=== PATIENT | male | born 1965 | race Two or more races ===

== ENCOUNTER 2022-09-06 16:40 | Inpatient (IN) | payer OTHER ==
[~2022-09-06] VITALS: Ht 167.6 cm; Wt 83.0 kg
--- NOTE | 2022-09-06 18:19 | NUR ---
PTE SE OBSERVA A/O X4. PTE VERBALIZA QUE LE DUELE EL PIES. PTE SE OBSERVA CON ULCERA CON SECRECIONES EN DEDO 5 AMPUTADO. PTE VERBALIZA QUE LE AMPUTARON DEDO EN OCTRE. ADEMAS SE OBSERVA DEDOS DEL PIES CON ERRYTHEMA POSIBLE CELULITIS.
--- NOTE | 2022-09-06 19:05 | NUR ---
PTE MASCULINO ALERTA Y ORIENTADO X3 ES EVALUADO POR . SE ORIENTA SOBRE ORDENES DE TX REFIERE COMPRENDER. SE COLECTAN MUESTRAS DE LABORATORIOS Y SE CANALIZA VENA BAJO MEDIDAS ASEPTICAS. SE ADMINISTRAN MEDICAMENTOS, BAJO MEDIDAS ASEPTICAS.SE NOTIFICA A RADIOLOGIA PARA XRAY.
== END 2022-09-13 20:38 | disposition home or self-care (01) | DRG 982 ==
LOC: ER 16:40 → MEDJ 19:05
PROVIDERS: ADMIT Internal Medicine; ATTEND Internal Medicine
PROC: 0JDR0ZZ Extraction of Left Foot Subcutaneous Tissue and Fascia, Open Approach (ICD-10-PCS; principal; 2022-09-07)
PROC: B44HZZZ Ultrasonography of Bilateral Lower Extremity Arteries (ICD-10-PCS; 2022-09-08)
PROC: BQ3FYZZ Magnetic Resonance Imaging (MRI) of Left Lower Leg using Other Contrast (ICD-10-PCS; 2022-09-12)
DX: E11.621 Type 2 diabetes mellitus with foot ulcer (principal); L02.612 Cutaneous abscess of left foot; L03.116 Cellulitis of left lower limb; T81.49XA Infection following a procedure, other surgical site, initial encounter; L97.529 Non-pressure chronic ulcer of other part of left foot with unspecified severity; E11.628 Type 2 diabetes mellitus with other skin complications; I10 Essential (primary) hypertension; B95.61 Methicillin susceptible Staphylococcus aureus infection as the cause of diseases classified elsewhere; B96.89 Other specified bacterial agents as the cause of diseases classified elsewhere; I73.89 Other specified peripheral vascular diseases; Z79.4 Long term (current) use of insulin; Z89.422 Acquired absence of other left toe(s); Z20.822 Contact with and (suspected) exposure to COVID-19; Z87.891 Personal history of nicotine dependence
CPT/HCPCS: 73725

== ENCOUNTER 2022-10-26 16:16 | Inpatient (IN) | payer OTHER ==
[~2022-10-26] VITALS: Ht 167.6 cm; Wt 83.0 kg
[2022-10-26] MEDS ORDERED: CLOPIDOGREL BIS75 MG PO (16:40)
[2022-10-26] MEDS ORDERED: CHILDREN'S ASPI81 MG PO (16:41)
[2022-10-26] MEDS ORDERED: HORIZANT300 MG PO (16:41)
[2022-10-26] MEDS ORDERED: NEURONTIN600 M1 (16:41)
[2022-10-26] MEDS ORDERED: COZAAR25 MG PO (16:41)
[2022-10-26] MEDS ORDERED: METFORMIN HCL500 MG (16:41)
[2022-10-26] MEDS ORDERED: ATORVASTATIN CA10 MG PO (16:42)
== END 2022-11-12 15:47 | disposition home or self-care (01) | DRG 257 ==
LOC: ER 16:16 → MEDI 17:37
PROVIDERS: ADMIT Internal Medicine; ATTEND Internal Medicine
PROC: BQ3FZZZ Magnetic Resonance Imaging (MRI) of Left Lower Leg (ICD-10-PCS; 2022-10-27)
PROC: 0HDNXZZ Extraction of Left Foot Skin, External Approach (ICD-10-PCS; 2022-10-31)
PROC: 0Y6Q0Z0 Detachment at Left 1st Toe, Complete, Open Approach (ICD-10-PCS; principal; 2022-11-07)
DX: I96 Gangrene, not elsewhere classified (principal); E11.52 Type 2 diabetes mellitus with diabetic peripheral angiopathy with gangrene; L97.524 Non-pressure chronic ulcer of other part of left foot with necrosis of bone; L08.9 Local infection of the skin and subcutaneous tissue, unspecified; L03.032 Cellulitis of left toe; I77.1 Stricture of artery; B35.1 Tinea unguium; B95.61 Methicillin susceptible Staphylococcus aureus infection as the cause of diseases classified elsewhere; B96.89 Other specified bacterial agents as the cause of diseases classified elsewhere; E78.5 Hyperlipidemia, unspecified; Z79.4 Long term (current) use of insulin; I10 Essential (primary) hypertension; Z20.822 Contact with and (suspected) exposure to COVID-19; G62.9 Polyneuropathy, unspecified
CPT/HCPCS: 73725

== ENCOUNTER 2023-02-18 10:04 | Emergency (ER) | payer OTHER ==
[~2023-02-18] VITALS: Ht 167.6 cm; Wt 83.9 kg
[~2023-02-18 10:04] MED LIST: ATORVASTATIN CA10 MG PO; CHILDREN'S ASPI81 MG PO; CLOPIDOGREL BIS75 MG PO; COZAAR25 MG PO; HORIZANT300 MG PO; METFORMIN HCL500 MG; NEURONTIN600 M1
== END 2023-02-18 15:52 | disposition home or self-care (01) ==
LOC: ER 10:04
DX: I10 Essential (primary) hypertension (principal); E11.9 Type 2 diabetes mellitus without complications; L97.529 Non-pressure chronic ulcer of other part of left foot with unspecified severity

== ENCOUNTER 2025-02-27 21:08 | Inpatient (IN) | payer OTHER ==
[~2025-02-27] VITALS: Ht 152.4 cm; Wt 81.6 kg
--- NOTE | 2025-02-27 21:57 | NUR ---
SE RECIBE MASCULINO ALERTA Y ORIENTADO X3 CUAL REFIERE PRESENTA DEBILIDAD EN AMBAS PIERNAS DESDE WEI. SE OBSERVA EDEMA EN AMBAS PIERNAS. ABD DISTENDIDO SIN DOLOR AL TACTO. MASCULINO VERBALIZA QUE TIENE HARDIK "ULCERA QUE SALIO WEI". SE OBSERVA AREA DE PRESION CON EDEMA, ERITEMA Y LESIONES DESDE EL AREA DEL SACRO HASTA EL PERINEO. ADEMAS PRESENTA EDEMA Y ERITEMA EN ESCROTO Y TESTICULOS. SE MIGUEL S/V, SE RELAIZA EKG Y SE PRESENTA A QUIEN ORDENA UBICAR EN OBS.
[2025-02-27] MEDS ORDERED: 0.9 % SODIUM CHLORIDE 1,000 ML IV SCH (22:00)
--- NOTE | 2025-02-27 22:25 | NUR ---
SE ORIENTA PTE SOBRE TX MEDICO ORDENADO POR . SE REALIZA SAHIL DE MUESTRAS DE LAB FELIX ORDEN MEDICA Y BAJO MEDIDAS ASEPTICAS. VENOPUNCION PATENTE RENEE DE EDEMA Y ERITEMA EN H/L. SE NOTIFICAN ESTUDIO ORDENADOS. SE ENTREGA ENVASE PARA MUESTRA DE U/A.
[2025-02-27 22:30] LABS: BASO % 0.3 % (0.1-1.2); EOS # 0.06 (0.04-0.54); EOS % 0.2 % (0.7-7.0); LYMPH # 1.01 (1.18-3.74); LYMPH % 3.6 % (19.3-53.1); MEAN PLATELET VOLUME 10.50 fl (9.4-12.4); MONO # 1.84 (0.24-0.82); MONO % 6.6 % (4.7-12.5); NEUT # 24.85 (1.56-6.13); NEUT % 88.7 % (34.0-71.1); RED CELL DISTRIBUTION WIDTH 13.7 % (11.6-14.4)
[2025-02-27 22:55] LABS: ALT/SGPT 31.0 U/L (12-78); AST/SGOT 18.0 U/L (15-37); BILIRUBIN TOTAL 0.45 mg/dL (0.3-1.2); BUN CREA RATIO 20.0 (7.0-25.0); CREATININE SERUM 1.19 mg/dL (0.70-1.30); GFR 62.15; GLOBULINA 4.2 G/DL (2.4-3.5); OSMOLALITY SERUM 272.0 MOSM/KG (275-295)
[2025-02-27 23:01] LABS: GLUCOSE FASTING 261.0 mg/dL (65-100)
[2025-02-27] MEDS ORDERED: INSULIN REGULAR, HUMAN 1,000 UNIT/10 ML UNITS IV ONE (23:45)
[2025-02-27] MEDS ORDERED: CEFTRIAXONE SODIUM 1,000 MG VIAL IV ONE (23:45)
--- NOTE | 2025-02-28 05:19 | NUR ---
SE INSERTA MESA CATETER #[id number] BAJO MEDIDAS ASEPTICAS, DRENANDO SIN PROBLEMA Y SE OBSERVA ORINA VERITO. CLIENTE ES ORIENTADO SOBRE PROCEDIMIENTO REALIZADO Y CUIDADOS A SEGUIR EN AREA TRABAJADA. CLIENTE VERBALIZA ENTENDER ORIENTACION Y SE MANTIENE EN OBSERVACION POR CAMBIOS EN CONDICION.
[2025-02-28 06:25] LABS: URINE APPEARANCE Clear; URINE BILIRRUBIN Negative (NEGATIVE); URINE BLOOD Negative; URINE COLOR Yellow; URINE GLUCOSE Negative (NEGATIVE); URINE KETONE Negative (NEGATIVE); URINE LEUKOCYTE Negative; URINE NITRATE Negative; URINE PROTEIN Negative (NEGATIVE); URINE UROBILINOGEN 0.2 E.U./dl
[2025-02-28 06:28] LABS: URINE BACTERIA 62.3 uL (0.0-1933); URINE EPITHELIAL CELLS 2.6 uL (0.0-38.8); URINE WBC 9.2 uL (0.0-23.2)
[2025-02-28 06:29] LABS: URINE CAST 0.14 uL (0.0-1.40); URINE RBC 1.3 uL (0.0-20.8)
--- NOTE | 2025-02-28 07:00 | NUR ---
SE RECIBE PTE DURMIENDO AL MOMENTO EN CAMA CON BARNADAS ELEVADAS POR DANIELSON SEGURIDAD Y GENTILE ID. SE OBERVA MESA PATENTE, EN POSICION BAJANDO A GRAVEDAD. VENOPUNCION PATENTE RENEE DE EDEMA Y ERITEMA BAJANDO IV FLUIDS POR REGULADOR. PTE PENDIENTE A HERMINIO DE CONSULTA. SE MIDE S/V Y SE UBICA.
[2025-02-28] MEDS ORDERED: MORPHINE SULFATE 4 MG/ML VIAL IV PRN (12:30)
[2025-02-28] MEDS ORDERED: ONDANSETRON HCL 2 MG/ML VIAL IV PRN (12:30)
[2025-02-28] MEDS ORDERED: INSULIN LISPRO 1,000 UNIT/10 ML UNITS SUBCUTANEO SCH (13:00)
[2025-02-28 15:38] VITALS: BP 134/77; O2SAT 98
[2025-02-28] MEDS ORDERED: INSULIN GLARGINE,HUM.REC.ANLOG 1,000 UNITS/10 ML UNITS SUBCUTANEO SCH (17:00)
[2025-02-28] MEDS ORDERED: PIPERACILLIN/TAZOBACTAM SODIUM 3.375 GM VIAL IV SCH (18:00)
[2025-02-28 23:00] VITALS: BP 158/88; O2SAT 99
[2025-03-01] MEDS ORDERED: DEXTROSE 50 % IN WATER 0.5 G/ML VIAL IV PRN (07:45)
[2025-03-01] MEDS ORDERED: INSULIN LISPRO 1,000 UNIT/10 ML UNITS SUBCUTANEO PRN (07:45)
[2025-03-01 08:14] LABS: BASO % 0.2 % (0.1-1.2); EOS # 0.21 (0.04-0.54); EOS % 1.2 % (0.7-7.0); LYMPH # 1.47 (1.18-3.74); LYMPH % 8.3 % (19.3-53.1); MEAN PLATELET VOLUME 11.40 fl (9.4-12.4); MONO # 1.49 (0.24-0.82); MONO % 8.4 % (4.7-12.5); NEUT # 14.36 (1.56-6.13); NEUT % 81.4 % (34.0-71.1); RED CELL DISTRIBUTION WIDTH 13.8 % (11.6-14.4)
[2025-03-01 08:48] VITALS: BP 135/62; O2SAT 98
[2025-03-01 08:54] LABS: ALT/SGPT 31.0 U/L (12-78); AST/SGOT 18.0 U/L (15-37); BILIRUBIN TOTAL 0.33 mg/dL (0.3-1.2); BUN CREA RATIO 14.0 (7.0-25.0); CREATININE SERUM 0.87 mg/dL (0.70-1.30); GFR 89.21; GLOBULINA 3.5 G/DL (2.4-3.5); GLUCOSE FASTING 127.0 mg/dL (65-100); OSMOLALITY SERUM 279.0 MOSM/KG (275-295)
[2025-03-01 17:21] VITALS: BP 145/73
[2025-03-02 02:18] VITALS: BP 143/82; O2SAT 97
[2025-03-02 06:21] LABS: BASO % 0.4 % (0.1-1.2); EOS # 0.28 (0.04-0.54); EOS % 1.7 % (0.7-7.0); LYMPH # 1.79 (1.18-3.74); LYMPH % 11.2 % (19.3-53.1); MEAN PLATELET VOLUME 11.20 fl (9.4-12.4); MONO # 1.60 (0.24-0.82); MONO % 10.0 % (4.7-12.5); NEUT # 12.23 (1.56-6.13); NEUT % 76.2 % (34.0-71.1); RED CELL DISTRIBUTION WIDTH 13.7 % (11.6-14.4)
[2025-03-02 08:58] VITALS: BP 133/76; O2SAT 97
[2025-03-02 16:26] VITALS: BP 162/87; O2SAT 97
[2025-03-02] MEDS ORDERED: AMINO ACIDS/PROTEIN HYDROLYS 30 ML BLIST.PACK PO SCH (17:00)
[2025-03-03] VITALS: BP 153/74; O2SAT 98
[2025-03-03 09:13] VITALS: BP 165/76
[2025-03-03 16:30] VITALS: BP 148/83; O2SAT 99
[2025-03-03] MEDS ORDERED: LOSARTAN POTASSIUM 25 MG TABLET PO SCH (17:00)
[2025-03-04 02:21] VITALS: BP 147/78; O2SAT 100
[2025-03-04 06:13] LABS: BASO % 0.5 % (0.1-1.2); EOS # 0.36 (0.04-0.54); EOS % 2.7 % (0.7-7.0); LYMPH # 1.73 (1.18-3.74); LYMPH % 13.0 % (19.3-53.1); MEAN PLATELET VOLUME 10.70 fl (9.4-12.4); MONO # 1.26 (0.24-0.82); MONO % 9.5 % (4.7-12.5); NEUT # 9.82 (1.56-6.13); NEUT % 73.8 % (34.0-71.1); RED CELL DISTRIBUTION WIDTH 13.5 % (11.6-14.4)
[2025-03-04 06:43] LABS: BUN CREA RATIO 19.0 (7.0-25.0); CREATININE SERUM 0.77 mg/dL (0.70-1.30); GFR 102.71; GLUCOSE FASTING 142.0 mg/dL (65-100); OSMOLALITY SERUM 279.0 MOSM/KG (275-295)
[2025-03-04 08:27] VITALS: BP 144/81
[2025-03-04] MEDS ORDERED: METOPROLOL SUCCINATE 25 MG TAB.SR.24H PO NR (11:00)
[2025-03-04 18:06] VITALS: BP 149/81
[2025-03-04 18:08] VITALS: BP 149/81
[2025-03-05 00:55] VITALS: BP 140/77; O2SAT 99
[2025-03-05 08:54] VITALS: BP 114/75
[2025-03-05] MEDS ORDERED: METOPROLOL SUCCINATE 25 MG TAB.SR.24H PO SCH (09:00)
[2025-03-05 18:02] VITALS: BP 134/80
[2025-03-06 02:37] VITALS: BP 150/80; O2SAT 97
[2025-03-06 08:44] VITALS: BP 154/76
[2025-03-06] MEDS ORDERED: METOPROLOL SUCCINATE 25 MG TAB.SR.24H PO SCH (17:00)
[2025-03-06] MEDS ORDERED: LOSARTAN POTASSIUM 25 MG TABLET PO SCH (17:00)
[2025-03-06 21:01] VITALS: BP 138/80
[2025-03-07 02:57] VITALS: BP 136/69; O2SAT 97
[2025-03-07 07:42] LABS: BASO % 0.4 % (0.1-1.2); EOS # 0.44 (0.04-0.54); EOS % 3.2 % (0.7-7.0); LYMPH # 1.84 (1.18-3.74); LYMPH % 13.5 % (19.3-53.1); MEAN PLATELET VOLUME 11.10 fl (9.4-12.4); MONO # 1.11 (0.24-0.82); MONO % 8.1 % (4.7-12.5); NEUT # 10.09 (1.56-6.13); NEUT % 74.1 % (34.0-71.1); RED CELL DISTRIBUTION WIDTH 13.7 % (11.6-14.4)
[2025-03-07 07:45] LABS: ERYTHROCYTE SEDIMENTATION RATE 102 mm/hr (0-20)
[2025-03-07 07:49] LABS: BUN CREA RATIO 25.0 (7.0-25.0); CREATININE SERUM 0.84 mg/dL (0.70-1.30); GFR 92.89; GLUCOSE FASTING 154.0 mg/dL (65-100); OSMOLALITY SERUM 282.0 MOSM/KG (275-295)
[2025-03-07 08:52] VITALS: BP 130/75; O2SAT 98
[2025-03-07] MEDS ORDERED: LACTOBACILLUS ACIDOPHILUS 1 CAP CAP PO SCH (13:00)
[2025-03-07 15:30] VITALS: BP 128/80; O2SAT 98
[2025-03-07] MEDS ORDERED: GABAPENTIN 300 MG CAPSULE PO SCH (21:00)
[2025-03-08 01:09] VITALS: BP 119/77; O2SAT 98
[2025-03-08 09:30] VITALS: BP 137/78; O2SAT 98
[2025-03-08 16:47] VITALS: BP 137/77; O2SAT 100
[2025-03-09 01:53] VITALS: BP 152/85; O2SAT 100
[2025-03-09 06:18] LABS: BASO % 0.5 % (0.1-1.2); EOS # 0.43 (0.04-0.54); EOS % 3.3 % (0.7-7.0); LYMPH # 1.88 (1.18-3.74); LYMPH % 14.3 % (19.3-53.1); MEAN PLATELET VOLUME 10.90 fl (9.4-12.4); MONO # 1.05 (0.24-0.82); MONO % 8.0 % (4.7-12.5); NEUT # 9.68 (1.56-6.13); NEUT % 73.3 % (34.0-71.1); RED CELL DISTRIBUTION WIDTH 13.8 % (11.6-14.4)
[2025-03-09 06:46] LABS: ERYTHROCYTE SEDIMENTATION RATE 50 mm/hr (0-20)
[2025-03-09 08:35] VITALS: BP 123/70; O2SAT 99
[2025-03-09 16:00] VITALS: BP 151/73
[2025-03-10 00:43] VITALS: BP 128/75; O2SAT 97
[2025-03-10 16:44] VITALS: BP 128/77
[2025-03-11 02:09] VITALS: BP 148/78; O2SAT 97
[2025-03-11 06:45] LABS: BASO % 0.3 % (0.1-1.2); EOS # 0.51 (0.04-0.54); EOS % 3.9 % (0.7-7.0); LYMPH # 1.89 (1.18-3.74); LYMPH % 14.4 % (19.3-53.1); MEAN PLATELET VOLUME 11.00 fl (9.4-12.4); MONO # 1.02 (0.24-0.82); MONO % 7.8 % (4.7-12.5); NEUT # 9.60 (1.56-6.13); NEUT % 72.8 % (34.0-71.1); RED CELL DISTRIBUTION WIDTH 13.8 % (11.6-14.4)
[2025-03-11 07:08] LABS: ERYTHROCYTE SEDIMENTATION RATE 106 mm/hr (0-20)
[2025-03-11 09:16] VITALS: BP 155/83; O2SAT 97
[2025-03-11 12:43] LABS: ALT/SGPT 30.0 U/L (12-78); AST/SGOT 16.0 U/L (15-37); BILIRUBIN TOTAL 0.42 mg/dL (0.3-1.2); BUN CREA RATIO 27.0 (7.0-25.0); CREATININE SERUM 0.7 mg/dL (0.70-1.30); GFR 114.27; GLOBULINA 4.1 G/DL (2.4-3.5); GLUCOSE FASTING 196.0 mg/dL (65-100); OSMOLALITY SERUM 283.0 MOSM/KG (275-295)
[2025-03-11 12:45] LABS: COVID-19 AG NEGATIVE (NEGATIVE)
[2025-03-11 16:59] VITALS: BP 170/75
[2025-03-11] MEDS ORDERED: COLCHICINE 0.6 MG TABLET PO SCH (17:00)
[2025-03-11] MEDS ORDERED: KETOROLAC TROMETHAMINE 30 MG VIAL IV SCH (21:00)
[2025-03-12 03:28] VITALS: BP 153/73; O2SAT 98
[2025-03-12 09:50] VITALS: BP 136/82; BP 94/64; O2SAT 100; O2SAT 97
[2025-03-12 18:05] VITALS: BP 150/78
[2025-03-13 10:18] VITALS: BP 147/81; O2SAT 98
[2025-03-13 18:11] VITALS: BP 145/80
[2025-03-14 03:52] VITALS: BP 165/83; O2SAT 98
[2025-03-14 08:44] VITALS: BP 135/73
[2025-03-14 19:01] VITALS: BP 170/95
[2025-03-15 03:38] VITALS: BP 138/76; O2SAT 96
[2025-03-15 08:32] VITALS: BP 129/77
[2025-03-15 19:34] VITALS: BP 161/89
[2025-03-16 02:47] VITALS: BP 138/77; O2SAT 97
[2025-03-16 08:00] VITALS: BP 155/79; O2SAT 99
[2025-03-16 16:55] VITALS: BP 138/79; O2SAT 98
[2025-03-17 00:46] VITALS: BP 147/77; O2SAT 98
[2025-03-17 06:48] LABS: BASO % 0.6 % (0.1-1.2); EOS # 0.41 (0.04-0.54); EOS % 3.8 % (0.7-7.0); LYMPH # 1.47 (1.18-3.74); LYMPH % 13.5 % (19.3-53.1); MEAN PLATELET VOLUME 11.30 fl (9.4-12.4); MONO # 0.73 (0.24-0.82); MONO % 6.7 % (4.7-12.5); NEUT # 8.16 (1.56-6.13); NEUT % 74.9 % (34.0-71.1); RED CELL DISTRIBUTION WIDTH 15.0 % (11.6-14.4)
[2025-03-17 07:01] LABS: ERYTHROCYTE SEDIMENTATION RATE 32 mm/hr (0-20)
[2025-03-17 09:26] VITALS: BP 145/85; O2SAT 100
[2025-03-17 16:00] VITALS: BP 148/80; O2SAT 95
[2025-03-18 00:40] VITALS: BP 141/83; O2SAT 98
[2025-03-18 08:00] VITALS: BP 142/80; O2SAT 98
== END 2025-03-18 15:06 | DRG 74 ==
LOC: ER 21:08 → MEDJ 02-28 12:23 → MEDI 02-28 13:21 → MEDJ 03-10 11:55 → SURH 03-16 03:11
PROVIDERS: Emergency Medicine; Internal Medicine; Student in an Organized Health Care Education/Training Program; ADMIT Internal Medicine; ATTEND Internal Medicine
PROC: BR39ZZZ Magnetic Resonance Imaging (MRI) of Lumbar Spine (ICD-10-PCS; principal; 2025-02-27)
PROC: BW21ZZZ Computerized Tomography (CT Scan) of Abdomen and Pelvis (ICD-10-PCS; 2025-02-28)
PROC: B020ZZZ Computerized Tomography (CT Scan) of Brain (ICD-10-PCS; 2025-03-01)
PROC: BR39ZZZ Magnetic Resonance Imaging (MRI) of Lumbar Spine (ICD-10-PCS; 2025-03-04)
PROC: BQ3FYZZ Magnetic Resonance Imaging (MRI) of Left Lower Leg using Other Contrast (ICD-10-PCS; 2025-03-11)
PROC: BQ3FZZZ Magnetic Resonance Imaging (MRI) of Left Lower Leg (ICD-10-PCS; 2025-03-11)
PROC: 0S9D3ZX Drainage of Left Knee Joint, Percutaneous Approach, Diagnostic (ICD-10-PCS; 2025-03-14)
DX: E11.42 Type 2 diabetes mellitus with diabetic polyneuropathy (principal); M00.9 Pyogenic arthritis, unspecified; E11.622 Type 2 diabetes mellitus with other skin ulcer; L89.152 Pressure ulcer of sacral region, stage 2; M10.062 Idiopathic gout, left knee; M62.81 Muscle weakness (generalized); D72.829 Elevated white blood cell count, unspecified; M51.379 Other intervertebral disc degeneration, lumbosacral region without mention of lumbar back pain or lower extremity pain; M48.07 Spinal stenosis, lumbosacral region; R19.7 Diarrhea, unspecified; Z79.84 Long term (current) use of oral hypoglycemic drugs; Z89.422 Acquired absence of other left toe(s)
CPT/HCPCS: 72148

== ENCOUNTER 2025-05-11 14:39 | Inpatient (IN) | payer OTHER ==
[~2025-05-11] VITALS: Ht 152.4 cm; Wt 81.6 kg
--- NOTE | 2025-05-11 15:19 | NUR ---
PTE ALERTA Y ORIENTADO X3 REFIERE DOLOR EN EL PIE KYLE QUE LO LIMITA AL CAMINAR Y EL MISMO LLEGA CON ORDEN DE ADMISION DIRECTA. SE SAHIL S/V Y SE UBICA.
[2025-05-11] MEDS ORDERED: 0.9 % SODIUM CHLORIDE 1,000 ML IV ONE (15:45)
[2025-05-11] MEDS ORDERED: PANTOPRAZOLE SODIUM 40 MG/VIAL VIAL IV PUSH ONE (15:45)
[2025-05-11] MEDS ORDERED: PIPERACILLIN/TAZOBACTAM SODIUM 3.375 GM VIAL IV ONE (15:45)
[2025-05-11 17:57] LABS: BASO % 0.3 % (0.1-1.2); EOS # 0.13 (0.04-0.54); EOS % 1.1 % (0.7-7.0); LYMPH # 1.50 (1.18-3.74); LYMPH % 12.4 % (19.3-53.1); MEAN PLATELET VOLUME 11.40 fl (9.4-12.4); MONO # 0.78 (0.24-0.82); MONO % 6.5 % (4.7-12.5); NEUT # 9.56 (1.56-6.13); NEUT % 79.4 % (34.0-71.1); RED CELL DISTRIBUTION WIDTH 15.0 % (11.6-14.4)
[2025-05-11 18:02] LABS: ERYTHROCYTE SEDIMENTATION RATE 26 mm/hr (0-20)
[2025-05-11 18:14] LABS: INR 1.04
[2025-05-11 18:18] LABS: ALT/SGPT 24.0 U/L (12-78); AST/SGOT 10.0 U/L (15-37); BILIRUBIN TOTAL 0.54 mg/dL (0.3-1.2); BUN CREA RATIO 22.0 (7.0-25.0); CREATININE SERUM 1.11 mg/dL (0.70-1.30); GFR 67.12; GLOBULINA 4.2 G/DL (2.4-3.5); GLUCOSE FASTING 165.0 mg/dL (65-100); OSMOLALITY SERUM 287.0 MOSM/KG (275-295)
--- NOTE | 2025-05-11 18:29 | NUR ---
SE ORIENTA A FAMILIAR SOBRE TRATAMIENTO MEDICO, REFIERE ENTENDER. SE REALIZAN MUESTRAS DE LABORATORIO BAJO MEDIDAS ASEPTICAS. SE ADMINISTRA IV'S Y MEDICAMENTOS FELIX ORDEN MEDICA. SE COORDINRA LUCIE X. PACIENTE MANEJADO POR MIKAL HI.
[2025-05-11 19:26] LABS: URINE APPEARANCE Clear; URINE BILIRRUBIN Small (NEGATIVE); URINE BLOOD Negative; URINE COLOR Dark Yellow; URINE GLUCOSE Negative (NEGATIVE); URINE KETONE 15 (NEGATIVE); URINE LEUKOCYTE Trace; URINE NITRATE Negative; URINE PROTEIN 30 (NEGATIVE); URINE UROBILINOGEN 1.0 E.U./dl
[2025-05-11 19:29] LABS: URINE BACTERIA 123.5 uL (0.0-1933); URINE CAST 1.46 uL (0.0-1.40); URINE EPITHELIAL CELLS 6.1 uL (0.0-38.8); URINE WBC 4.1 uL (0.0-23.2)
[2025-05-11] MEDS ORDERED: CEFEPIME HCL 1,000 MG VIAL IV ONE (19:30)
[2025-05-11] MEDS ORDERED: VANCOMYCIN HCL 1,000 MG VIAL IV ONE (19:30)
[2025-05-11 19:35] LABS: URINE RBC 0.8 uL (0.0-20.8)
[2025-05-11] MEDS ORDERED: 0.9 % SODIUM CHLORIDE 1,000 ML IV SCH (22:45)
[2025-05-11] MEDS ORDERED: INSULIN LISPRO 1,000 UNIT/10 ML UNITS SUBCUTANEO PRN ×2 (23:00)
[2025-05-11] MEDS ORDERED: DEXTROSE 50 % IN WATER 0.5 G/ML DISP.SYRIN IV PRN (23:00)
[2025-05-12] MEDS ORDERED: CEFEPIME HCL 2,000 MG in 0.9 % SODIUM CHLORIDE 100 ML IV SCH (01:00)
[2025-05-12] MEDS ORDERED: ACETAMINOPHEN 500 MG GEL..CAP PO SCH (02:00)
[2025-05-12] MEDS ORDERED: VANCOMYCIN HCL 1,000 MG VIAL IV SCH (05:00)
[2025-05-12] MEDS ORDERED: ENOXAPARIN SODIUM 40 MG/0.4 ML SYRINGE SUBCUTANEO SCH (09:00)
[2025-05-12] MEDS ORDERED: ATORVASTATIN CALCIUM 20 MG TABLET PO SCH (09:00)
[2025-05-12] MEDS ORDERED: GABAPENTIN 300 MG CAPSULE PO SCH (09:00)
[2025-05-12] MEDS ORDERED: LOSARTAN POTASSIUM 25 MG TABLET PO SCH (09:00)
[2025-05-12 12:29] VITALS: BP 126/71; O2SAT 99
[2025-05-12] MEDS ORDERED: CARVEDILOL 6.25 MG TABLET PO NR (13:00)
[2025-05-12 16:00] VITALS: BP 146/76; O2SAT 100
[2025-05-12] MEDS ORDERED: CARVEDILOL 6.25 MG TABLET PO SCH (21:00)
[2025-05-13 00:30] VITALS: BP 141/84; O2SAT 100
[2025-05-13 04:42] LABS: BASO % 0.3 % (0.1-1.2); EOS # 0.34 (0.04-0.54); EOS % 5.4 % (0.7-7.0); LYMPH # 1.09 (1.18-3.74); LYMPH % 17.3 % (19.3-53.1); MEAN PLATELET VOLUME 12.00 fl (9.4-12.4); MONO # 0.53 (0.24-0.82); MONO % 8.4 % (4.7-12.5); NEUT # 4.30 (1.56-6.13); NEUT % 68.4 % (34.0-71.1); RED CELL DISTRIBUTION WIDTH 15.0 % (11.6-14.4)
[2025-05-13 05:17] LABS: ALT/SGPT 18.0 U/L (12-78); AST/SGOT 9.0 U/L (15-37); BILIRUBIN TOTAL 0.37 mg/dL (0.3-1.2); BUN CREA RATIO 21.0 (7.0-25.0); CHOL HDL RATIO 4.7 (0-5.0); CREATININE SERUM 0.67 mg/dL (0.70-1.30); GFR 120.19; GLOBULINA 2.7 G/DL (2.4-3.5); GLUCOSE FASTING 144.0 mg/dL (65-100); HDL 30.0 mg/dl (40-60); LDL 77.0 mg/dl (0-130); OSMOLALITY SERUM 290.0 MOSM/KG (275-295); VLDL 35.0 (0-39)
[2025-05-13 16:47] VITALS: BP 162/87; O2SAT 100
[2025-05-14 01:09] VITALS: BP 143/79; O2SAT 100
[2025-05-14 07:30] VITALS: BP 134/75; O2SAT 100
[2025-05-14] MEDS ORDERED: IRON FUM,PS/FOLIC/BCOMP,C NO.9 1 CAP CAPSULE PO SCH (17:00)
[2025-05-14 23:15] VITALS: BP 164/53; O2SAT 100
[2025-05-15 06:51] LABS: BASO % 0.4 % (0.1-1.2); EOS # 0.32 (0.04-0.54); EOS % 4.2 % (0.7-7.0); LYMPH # 1.35 (1.18-3.74); LYMPH % 17.9 % (19.3-53.1); MEAN PLATELET VOLUME 11.90 fl (9.4-12.4); MONO # 0.81 (0.24-0.82); MONO % 10.8 % (4.7-12.5); NEUT # 4.99 (1.56-6.13); NEUT % 66.3 % (34.0-71.1); RED CELL DISTRIBUTION WIDTH 14.8 % (11.6-14.4)
[2025-05-15 07:39] LABS: ALT/SGPT 22.0 U/L (12-78); AST/SGOT 12.0 U/L (15-37); BILIRUBIN TOTAL 0.49 mg/dL (0.3-1.2); BUN CREA RATIO 23.0 (7.0-25.0); CREATININE SERUM 0.74 mg/dL (0.70-1.30); GFR 107.17; GLOBULINA 2.8 G/DL (2.4-3.5); GLUCOSE FASTING 150.0 mg/dL (65-100); OSMOLALITY SERUM 291.0 MOSM/KG (275-295)
[2025-05-15 07:47] VITALS: BP 129/67; O2SAT 98
[2025-05-15] MEDS ORDERED: ATORVASTATIN CALCIUM 20 MG TABLET PO SCH (09:00)
[2025-05-15 16:30] VITALS: BP 135/79; O2SAT 98
[2025-05-16 00:52] VITALS: BP 137/79; O2SAT 98
[2025-05-16 08:00] VITALS: BP 148/78; O2SAT 99
[2025-05-16 16:57] VITALS: BP 126/77; O2SAT 98
[2025-05-17 01:22] VITALS: BP 134/81; O2SAT 98
[2025-05-17 08:00] VITALS: BP 167/79; O2SAT 99
[2025-05-17 08:05] LABS: BASO % 0.4 % (0.1-1.2); EOS # 0.30 (0.04-0.54); EOS % 4.0 % (0.7-7.0); LYMPH # 1.25 (1.18-3.74); LYMPH % 16.8 % (19.3-53.1); MEAN PLATELET VOLUME 12.10 fl (9.4-12.4); MONO # 0.74 (0.24-0.82); MONO % 9.9 % (4.7-12.5); NEUT # 5.10 (1.56-6.13); NEUT % 68.5 % (34.0-71.1); RED CELL DISTRIBUTION WIDTH 14.8 % (11.6-14.4)
[2025-05-17 08:22] LABS: ALT/SGPT 32.0 U/L (12-78); AST/SGOT 18.0 U/L (15-37); BILIRUBIN TOTAL 0.42 mg/dL (0.3-1.2); BUN CREA RATIO 23.0 (7.0-25.0); CREATININE SERUM 0.57 mg/dL (0.70-1.30); GFR 144.84; GLOBULINA 3.0 G/DL (2.4-3.5); GLUCOSE FASTING 128.0 mg/dL (65-100); OSMOLALITY SERUM 289.0 MOSM/KG (275-295)
[2025-05-17 14:32] VITALS: BP 138/70
[2025-05-17 16:56] VITALS: BP 150/79; O2SAT 99
[2025-05-18 00:30] VITALS: BP 139/83; O2SAT 100
[2025-05-18 08:00] VITALS: BP 135/69; O2SAT 99
[2025-05-18 16:00] VITALS: BP 170/72; O2SAT 100
[2025-05-18] MEDS ORDERED: ASPIRIN 81 MG TABLET.EC PO NR (19:15)
[2025-05-18] MEDS ORDERED: CLOPIDOGREL BISULFATE 75 MG TABLET PO NR (19:15)
[2025-05-18] MEDS ORDERED: PANTOPRAZOLE SODIUM 40 MG TABLET.DR PO NR (19:30)
[2025-05-19] VITALS: BP 149/76; O2SAT 95
[2025-05-19 08:48] VITALS: BP 161/78; O2SAT 97
[2025-05-19] MEDS ORDERED: PANTOPRAZOLE SODIUM 40 MG TABLET.DR PO SCH (09:00)
[2025-05-19] MEDS ORDERED: CLOPIDOGREL BISULFATE 75 MG TABLET PO SCH (09:00)
[2025-05-19] MEDS ORDERED: ASPIRIN 81 MG TABLET.EC PO SCH (09:00)
[2025-05-19] MEDS ORDERED: LEVALBUTEROL HCL 0.63 MG/3 ML SOLUTION IH SCH (12:00)
[2025-05-19] MEDS ORDERED: IPRATROPIUM BROMIDE 0.5 MG/2.5 ML AMPUL.NEB IH SCH (13:00)
[2025-05-19 17:20] VITALS: BP 165/78; O2SAT 100
[2025-05-20] VITALS (11 sets, daily range): BP systolic 74–156; BP diastolic 46–85; O2SAT 89–100
[2025-05-20] MEDS ORDERED: LEVALBUTEROL HCL 0.63 MG/3 ML SOLUTION IH SCH (01:00)
[2025-05-20] MEDS ORDERED: IPRATROPIUM BROMIDE 0.5 MG/2.5 ML AMPUL.NEB IH SCH (09:00)
[2025-05-20 10:40] LABS: BASO % 0.3 % (0.1-1.2); EOS # 0.37 (0.04-0.54); EOS % 1.7 % (0.7-7.0); LYMPH # 2.47 (1.18-3.74); LYMPH % 11.6 % (19.3-53.1); MEAN PLATELET VOLUME 11.40 fl (9.4-12.4); MONO # 1.92 (0.24-0.82); MONO % 9.0 % (4.7-12.5); NEUT # 16.31 (1.56-6.13); NEUT % 76.6 % (34.0-71.1); RED CELL DISTRIBUTION WIDTH 15.1 % (11.6-14.4)
[2025-05-20] MEDS ORDERED: ASPIRIN 325 MG TABLET PO STA (11:37)
[2025-05-20 11:38] LABS: ALT/SGPT 70.0 U/L (12-78); AST/SGOT 39.0 U/L (15-37); BILIRUBIN TOTAL 0.7 mg/dL (0.3-1.2); BUN CREA RATIO 18.0 (7.0-25.0); CREATININE SERUM 1.03 mg/dL (0.70-1.30); GFR 73.17; GLOBULINA 3.5 G/DL (2.4-3.5); OSMOLALITY SERUM 297.0 MOSM/KG (275-295)
[2025-05-20] MEDS ORDERED: TICAGRELOR 90 MG TABLET PO STA (11:38)
[2025-05-20] MEDS ORDERED: NITROGLYCERIN IN 5 % DEXTROSE 50 MG/250 ML BOTTLE IV STA (11:38)
[2025-05-20 11:39] LABS: GLUCOSE FASTING 300.0 mg/dL (65-100)
[2025-05-20] MEDS ORDERED: NITROGLYCERIN IN 5 % DEXTROSE 250 ML IV SCH (11:45)
[2025-05-20 16:15] LABS: COVID-19 AG NEGATIVE (NEGATIVE)
[2025-05-20] MEDS ORDERED: PROPOFOL 10,000 MCG/ML VIAL ONE (17:27)
[2025-05-20] MEDS ORDERED: PROPOFOL 10,000 MCG/ML VIAL IV ONE (17:27)
[2025-05-20] MEDS ORDERED: NOREPINEPHRINE BITARTRATE 1 MG/ML AMPUL IV ONE (17:48)
[2025-05-20] MEDS ORDERED: PROPOFOL 10,000 MCG/ML VIAL IV PUSH STA (18:21)
[2025-05-20] MEDS ORDERED: PROPOFOL 100 ML IV SCH (18:30)
[2025-05-20] MEDS ORDERED: NOREPINEPHRINE BITARTRATE 8 MG in DEXTROSE 5 % IN WATER 250 ML IV SCH (18:30)
[2025-05-20] MEDS ORDERED: ENOXAPARIN SODIUM 80 MG/0.8 ML SYRINGE SUBCUTANEO SCH (21:00)
[2025-05-20 21:38] LABS: URINE APPEARANCE Clear; URINE BILIRRUBIN Negative (NEGATIVE); URINE BLOOD Moderate; URINE COLOR Yellow; URINE GLUCOSE Negative (NEGATIVE); URINE KETONE Negative (NEGATIVE); URINE LEUKOCYTE Negative; URINE NITRATE Negative; URINE PROTEIN Trace (NEGATIVE); URINE UROBILINOGEN 0.2 E.U./dl
[2025-05-20 21:39] LABS: URINE BACTERIA 177.2 uL (0.0-1933); URINE CAST 5.38 uL (0.0-1.40); URINE EPITHELIAL CELLS 9.8 uL (0.0-38.8); URINE RBC 40.9 uL (0.0-20.8); URINE WBC 11.1 uL (0.0-23.2)
[2025-05-20 22:02] LABS: TYPE CELLS SQUAMOUS; URINE MUCUS SCANT
[2025-05-20] MEDS ORDERED: LINEZOLID IN DEXTROSE 5% 300 ML IV SCH (22:59)
[2025-05-20] MEDS ORDERED: MIDAZOLAM HCL 100 MG in 0.9 % SODIUM CHLORIDE 100 ML IV SCH (23:15)
[2025-05-21] VITALS (23 sets, daily range): BP systolic 56–161; BP diastolic 45–94; O2SAT 77–100
[2025-05-21] MEDS ORDERED: CHLORHEXIDINE GLUCONATE 15ML BRUSH KIT MM SCH (01:00)
[2025-05-21 04:10] LABS: BASO % 0.2 % (0.1-1.2); EOS # 0.00 (0.04-0.54); EOS % 0.0 % (0.7-7.0); LYMPH # 0.73 (1.18-3.74); LYMPH % 4.3 % (19.3-53.1); MEAN PLATELET VOLUME 11.00 fl (9.4-12.4); MONO # 0.94 (0.24-0.82); MONO % 5.5 % (4.7-12.5); NEUT # 15.26 (1.56-6.13); NEUT % 89.8 % (34.0-71.1); RED CELL DISTRIBUTION WIDTH 15.2 % (11.6-14.4)
[2025-05-21 05:09] LABS: ALT/SGPT 88.0 U/L (12-78); AST/SGOT 203.0 U/L (15-37); BILIRUBIN TOTAL 0.98 mg/dL (0.3-1.2); BUN CREA RATIO 21.0 (7.0-25.0); CHOL HDL RATIO 2.9 (0-5.0); CREATININE SERUM 1.51 mg/dL (0.70-1.30); GFR 47.06; GLOBULINA 3.3 G/DL (2.4-3.5); HDL 45.0 mg/dl (40-60); LDL 56.0 mg/dl (0-130); OSMOLALITY SERUM 298.0 MOSM/KG (275-295); VLDL 30.0 (0-39)
[2025-05-21] MEDS ORDERED: SODIUM BICARBONATE 1 MEQ/ML DISP.SYRIN 50ML IV STA (05:38)
[2025-05-21 05:39] LABS: GLUCOSE FASTING 209.0 mg/dL (65-100)
[2025-05-21] MEDS ORDERED: ATROPINE SULFATE 0.1 MG/ML DISP.SYRIN IV STA (05:40)
[2025-05-21] MEDS ORDERED: DOPamine HCL IN DEXTROSE 5 % 250 ML IV SCH (05:45)
[2025-05-21] MEDS ORDERED: SODIUM BICARBONATE 1 MEQ/ML DISP.SYRIN 50ML IV SCH (05:45)
[2025-05-21] MEDS ORDERED: EPINEPHRINE HCL/PF 1 MG/ML AMPUL IV PUSH SCH (05:45)
[2025-05-21] MEDS ORDERED: ASPIRIN 81 MG TABLET.EC PO SCH (09:00)
[2025-05-21] MEDS ORDERED: POLYVINYL ALCOHOL 15 ML DROPS OP SCH (09:00)
[2025-05-21] MEDS ORDERED: TICAGRELOR 90 MG TABLET PO SCH (09:00)
[2025-05-21] MEDS ORDERED: PANTOPRAZOLE SODIUM 40 MG/VIAL VIAL IV NR (10:00)
[2025-05-21] MEDS ORDERED: MAGNESIUM SULFATE IN WATER 50 ML IV NR (10:00)
[2025-05-22] VITALS (14 sets, daily range): BP systolic 103–133; BP diastolic 60–72; O2SAT 99–100
[2025-05-22 06:29] LABS: BASO % 0.2 % (0.1-1.2); EOS # 0.05 (0.04-0.54); EOS % 0.3 % (0.7-7.0); LYMPH # 0.79 (1.18-3.74); LYMPH % 5.3 % (19.3-53.1); MEAN PLATELET VOLUME 11.50 fl (9.4-12.4); MONO # 0.86 (0.24-0.82); MONO % 5.8 % (4.7-12.5); NEUT # 13.09 (1.56-6.13); NEUT % 88.0 % (34.0-71.1); RED CELL DISTRIBUTION WIDTH 15.5 % (11.6-14.4)
[2025-05-22 07:32] LABS: BUN CREA RATIO 14.0 (7.0-25.0); CREATININE SERUM 4.1 mg/dL (0.70-1.30); GFR 14.86; GLUCOSE FASTING 137.0 mg/dL (65-100); OSMOLALITY SERUM 303.0 MOSM/KG (275-295)
[2025-05-22 07:33] LABS: AST/SGOT 1783.0 U/L (15-37); BILIRUBIN TOTAL 0.79 mg/dL (0.3-1.2); GLOBULINA 3.0 G/DL (2.4-3.5)
[2025-05-22] MEDS ORDERED: PANTOPRAZOLE SODIUM 40 MG/VIAL VIAL IV SCH (09:00)
[2025-05-22] MEDS ORDERED: CEFEPIME HCL 2,000 MG in 0.9 % SODIUM CHLORIDE 100 ML IV SCH (09:00)
[2025-05-22] MEDS ORDERED: BUMETANIDE 2.5 MG/10 ML VIAL IV SCH (09:00)
[2025-05-22] MEDS ORDERED: METOPROLOL TARTRATE 25 MG TABLET PO SCH (09:00)
[2025-05-22] MEDS ORDERED: MEROPENEM 500 MG/VIAL VIAL IV SCH (17:00)
[2025-05-23] VITALS (13 sets, daily range): BP systolic 08–118; BP diastolic 55–64; O2SAT 100
[2025-05-23] MEDS ORDERED: BUMETANIDE 2.5 MG/10 ML VIAL IV SCH (09:32)
[2025-05-23 18:47] LABS: BASO % 0.2 % (0.1-1.2); EOS # 0.09 (0.04-0.54); EOS % 0.5 % (0.7-7.0); LYMPH # 0.77 (1.18-3.74); LYMPH % 4.1 % (19.3-53.1); MEAN PLATELET VOLUME 11.50 fl (9.4-12.4); MONO # 1.16 (0.24-0.82); MONO % 6.2 % (4.7-12.5); NEUT # 16.41 (1.56-6.13); NEUT % 88.2 % (34.0-71.1); RED CELL DISTRIBUTION WIDTH 15.4 % (11.6-14.4)
[2025-05-23] MEDS ORDERED: ALBUMIN HUMAN 25 GM IV NR (19:00)
[2025-05-24] VITALS (17 sets, daily range): BP systolic 71–99; BP diastolic 47–62; O2SAT 89–99
[2025-05-24] MEDS ORDERED: ALBUMIN HUMAN-25 0.25GM/ML (50ML) VIAL IV SCH (01:00)
[2025-05-24] MEDS ORDERED: NOREPINEPHRINE BITARTRATE 8 MG in DEXTROSE 5 % IN WATER 250 ML IV SCH (06:30)
[2025-05-24 07:51] LABS: BASO % 0.2 % (0.1-1.2); EOS # 0.02 (0.04-0.54); EOS % 0.1 % (0.7-7.0); LYMPH # 0.51 (1.18-3.74); LYMPH % 2.8 % (19.3-53.1); MEAN PLATELET VOLUME 12.30 fl (9.4-12.4); MONO # 1.46 (0.24-0.82); MONO % 8.0 % (4.7-12.5); NEUT # 16.06 (1.56-6.13); NEUT % 88.5 % (34.0-71.1); RED CELL DISTRIBUTION WIDTH 15.5 % (11.6-14.4)
[2025-05-24] MEDS ORDERED: ALBUMIN HUMAN 25 GM IV SCH (09:00)
[2025-05-24] MEDS ORDERED: RINGERS SOLUTION,LACTATED 1,000 ML IV ONE ×2 (09:45→23:00)
[2025-05-24 11:54] LABS: AST/SGOT 695.0 U/L (15-37); BILIRUBIN TOTAL 0.82 mg/dL (0.3-1.2); GLOBULINA 3.2 G/DL (2.4-3.5)
[2025-05-24 12:08] LABS: ALT/SGPT 2171.0 U/L (12-78); OSMOLALITY SERUM 313.0 MOSM/KG (275-295)
[2025-05-24 12:09] LABS: BUN CREA RATIO 12.0 (7.0-25.0); GFR 5.56; GLUCOSE FASTING 158.0 mg/dL (65-100)
[2025-05-24 12:13] LABS: CREATININE SERUM 9.61 mg/dL (0.70-1.30)
[2025-05-24] MEDS ORDERED: SODIUM POLYSTYRENE SULFONATE 30G/8 TSP NGT STA (12:42)
[2025-05-24] MEDS ORDERED: CALCIUM GLUCONATE 100 MG/ML VIAL IV STA (12:45)
[2025-05-24] MEDS ORDERED: CITRIC ACID/SODIUM CITRATE 30 ML BLIST.PACK PO SCH (13:00)
[2025-05-24] MEDS ORDERED: SODIUM POLYSTYRENE SULFONATE 15 G/4 TSP TSP NGT SCH (17:00)
[2025-05-24] MEDS ORDERED: AMINO ACIDS 4.25 %/DEXTROSE 5% 1,000 ML PERIFERAL SCH (17:00)
[2025-05-24] MEDS ORDERED: VASOPRESSIN 40 UNITS in 0.9 % SODIUM CHLORIDE 100 ML IV SCH (23:00)
[2025-05-25 01:00] VITALS: BP 66/52; O2SAT 84
[2025-05-25 07:18] VITALS: O2SAT 98
== END 2025-05-25 01:35 | disposition expired | DRG 255 ==
LOC: ER 14:39 → SURG 22:54 → SURH 05-15 08:15 → ICU 05-20 15:07
PROVIDERS: General Practice; Internal Medicine; ADMIT Internal Medicine; ATTEND Internal Medicine
PROC: B44GZZZ Ultrasonography of Left Lower Extremity Arteries (ICD-10-PCS; 2025-05-11)
PROC: 0Y6S0Z0 Detachment at Left 2nd Toe, Complete, Open Approach (ICD-10-PCS; 2025-05-13)
PROC: 3E0F7GC Introduction of Other Therapeutic Substance into Respiratory Tract, Via Natural or Artificial Opening (ICD-10-PCS; 2025-05-19)
PROC: BB24YZZ Computerized Tomography (CT Scan) of Bilateral Lungs using Other Contrast (ICD-10-PCS; principal; 2025-05-20)
PROC: 30233N1 Transfusion of Nonautologous Red Blood Cells into Peripheral Vein, Percutaneous Approach (ICD-10-PCS; 2025-05-20)
PROC: 5A1955Z Respiratory Ventilation, Greater than 96 Consecutive Hours (ICD-10-PCS; 2025-05-20)
PROC: 02HV33Z Insertion of Infusion Device into Superior Vena Cava, Percutaneous Approach (ICD-10-PCS; 2025-05-20)
PROC: 5A09457 Assistance with Respiratory Ventilation, 24-96 Consecutive Hours, Continuous Positive Airway Pressure (ICD-10-PCS; 2025-05-20)
PROC: 4A12X4Z Monitoring of Cardiac Electrical Activity, External Approach (ICD-10-PCS; 2025-05-20)
PROC: BW28ZZZ Computerized Tomography (CT Scan) of Head (ICD-10-PCS; 2025-05-21)
PROC: 30233N1 Transfusion of Nonautologous Red Blood Cells into Peripheral Vein, Percutaneous Approach (ICD-10-PCS; 2025-05-22)
DX: I21.4 Non-ST elevation (NSTEMI) myocardial infarction (principal); A41.9 Sepsis, unspecified organism; E11.52 Type 2 diabetes mellitus with diabetic peripheral angiopathy with gangrene; M86.172 Other acute osteomyelitis, left ankle and foot; R65.10 Systemic inflammatory response syndrome (SIRS) of non-infectious origin without acute organ dysfunction; L03.116 Cellulitis of left lower limb; I96 Gangrene, not elsewhere classified; Z79.4 Long term (current) use of insulin; E11.40 Type 2 diabetes mellitus with diabetic neuropathy, unspecified; I10 Essential (primary) hypertension; D72.828 Other elevated white blood cell count; E11.65 Type 2 diabetes mellitus with hyperglycemia; E78.1 Pure hyperglyceridemia; B96.5 Pseudomonas (aeruginosa) (mallei) (pseudomallei) as the cause of diseases classified elsewhere; B96.4 Proteus (mirabilis) (morganii) as the cause of diseases classified elsewhere; D64.9 Anemia, unspecified; R09.02 Hypoxemia; I11.0 Hypertensive heart disease with heart failure; I50.9 Heart failure, unspecified